=== PATIENT | male | born 1990 | race Caucasian/White ===

== ENCOUNTER 2019-03-23 03:53 | Emergency (ER) | payer SELFPAY ==
--- NOTE | 2019-03-23 04:34 | PDOC ---
History of Present Illness - General Stated Complaint: ABD PAIN History Source: Patient Exam Limitations: No Limitations - History of Present Illness Initial Comments: 03/23/19 05:05 28 yo M with a hx of anxiety presents to the emergency department with RLQ pain for the past 2 days with acute worsening over night. Per the patient, the pain was intermittent initially and now constant. Severity is 6/10 without radiation and is described as a cramping like sensation that worsens with urination. The patient denies previous abdominal surgeries. Denies the following: fevers, chills, SOB, chest pain, nausea, dysuria, hematuria, diarrhea, hematochezia, melena, leg pain/swelling, and lightheadedness. Allergies: NKDA Meds: None Past History - Past Medical History Allergies/Adverse Reactions: Allergies Allergy/AdvReac Type Severity Reaction Status Date / Time No Known Allergies Allergy Verified 03/23/19 04:47 Home Medications: Ambulatory Orders Cephalexin Monohydrate [Keflex -] 500 mg PO BID #14 capsule 03/23/19 Escitalopram Oxalate [Lexapro -] 10 mg PO DAILY 03/23/19 CVA: No COPD: No - Immunization History Immunization Up to Date: Yes - Psycho Social/Smoking Cessation Hx Smoking History: Never smoked Have you smoked in the past 12 months: No Hx Alcohol Use: No Drug/Substance Use Hx: No Substance Use Type: None Review of Systems - Review of Systems Able to Perform ROS?: Yes Is the patient limited Bahamian proficient: No Constitutional: No: Chills, Diaphoresis, Fever, Weakness HEENTM: No: Eye Pain, Ear Pain, Nose Pain, Throat Pain, Mouth Pain Respiratory: No: Cough, Shortness of Breath, Hemoptysis Cardiac (ROS): No: Chest Pain, Lightheadedness, Palpitations ABD/GI: Yes: Abdominal cramping. No: Constipated, Diarrhea, Nausea, Rectal Bleeding, Vomiting, Tarry Stools : No: Burning, Dysuria, Hematuria Musculoskeletal: No: Back Pain, Joint Pain, Neck Pain Integumentary: No: Bruising, Rash Neurological: No: Headache, Numbness Psychiatric: No: Change in Appetite Endocrine: No: Unexplained Weight Gain Hematologic/Lymphatic: No: Anemia *Physical Exam - Physical Exam General Appearance: Yes: Nourished, Appropriately Dressed. No: Apparent Distress, Intoxicated HEENT: positive: EOMI, KOURTNEY, Normal Voice, Symmetrical, Pharynx Normal, Hearing Grossly Normal. negative: Pale Conjunctivae, Scleral Icterus (R), Scleral Icterus (L), Muffled/Hoarse voice, Pharyngeal Erythema, Tonsillar Exudate, Tonsillar Erythema, Excessive drooling Neck: positive: Trachea midline, Supple. negative: Tender, Lymphadenopathy (R) , Lymphadenopathy (L), Tender lateral, Tender midline Respiratory/Chest: positive: Lungs Clear, Normal Breath Sounds. negative: Chest Tender, Respiratory Distress, Accessory Muscle Use Cardiovascular: positive: Regular Rhythm, Regular Rate, S1, S2. negative: Systolic Murmur Gastrointestinal/Abdominal: positive: Normal Bowel Sounds, Tender (RLQ. Positive psoas sign), Flat, Soft. negative: Distended Lymphatic: negative: Adenopathy Musculoskeletal: positive: Normal Inspection. negative: CVA Tenderness, Vertebral Tenderness Extremity: positive: Normal Capillary Refill, Normal Inspection, Normal Range of Motion. negative: Tender, Swelling, Calf Tenderness Integumentary: positive: Normal Color, Dry, Warm Neurologic: positive: Fully Oriented, Alert, Normal Mood/Affect ED Treatment Course - LABORATORY CBC & Chemistry Diagram: 03/23/19 04:51 03/23/19 04:51 Medical Decision Making - Medical Decision Making 03/23/19 05:13 28 yo M with a hx of anxiety presents to the emergency department with RLQ pain for the past 2 days with acute worsening over night. Per the patient, the pain was intermittent initially and now constant. Initial vitals: Initial Vital Signs Temp Pulse Resp BP Pulse Ox 98.1 F 81 18 112/70 98 03/23/19 04:44 03/23/19 04:44 03/23/19 04:44 03/23/19 04:44 03/23/19 04:44 work up: ddx: appendicitis vs UTI vs nephrolithiasis. patient to get abdomen pelvis CT with contrast to evaluate for appendicitis. Laboratory Tests 03/23/19 03/23/19 03/23/19 04:51 04:51 04:51 WBC 10.9 H RBC 5.11 Hgb 16.7 Hct 48.2 MCV 94.2 MCH 32.6 MCHC 34.6 RDW 13.6 Plt Count 272 MPV 8.5 Absolute Neuts (auto) 7.8 Neutrophils % 71.4 Lymphocytes % 19.9 Monocytes % 7.6 Eosinophils % 0.5 Basophils % 0.6 Nucleated RBC % 0 PT with INR 12.30 INR 1.04 PTT (Actin FS) Sodium 138 Potassium 3.8 Chloride 105 Carbon Dioxide 24 Anion Gap 9 BUN 17.0 Creatinine 1.1 Est GFR (CKD-EPI)AfAm 106.06 Est GFR (CKD-EPI)NonAf 91.51 Random Glucose 92 Calcium 9.1 Total Bilirubin 0.2 AST 25 ALT 54 Alkaline Phosphatase 149 H Total Protein 7.8 Albumin 3.9 Urine Color Urine Appearance Urine pH Ur Specific [place] Urine Protein Urine Glucose (UA) Urine Ketones Urine Blood Urine Nitrite Urine Bilirubin Urine Urobilinogen Ur Leukocyte Esterase Blood Type Antibody Screen 03/23/19 03/23/19 03/23/19 04:51 04:51 06:07 WBC RBC Hgb Hct MCV MCH MCHC RDW Plt Count MPV Absolute Neuts (auto) Neutrophils % Lymphocytes % Monocytes % Eosinophils % Basophils % Nucleated RBC % PT with INR INR PTT (Actin FS) 34.7 Sodium Potassium Chloride Carbon Dioxide Anion Gap BUN Creatinine Est GFR (CKD-EPI)AfAm Est GFR (CKD-EPI)NonAf Random Glucose Calcium Total Bilirubin AST ALT Alkaline Phosphatase Total Protein Albumin Urine Color Yellow Urine Appearance Clear Urine pH 5.5 Ur Specific [place] 1.023 Urine Protein Negative Urine Glucose (UA) Negative Urine Ketones Trace H Urine Blood Negative Urine Nitrite Negative Urine Bilirubin Negative Urine Urobilinogen 0.2 Ur Leukocyte Esterase Negative Blood Type B NEGATIVE Antibody Screen Negative labs within normal limits. UA within normal limits patient has a pending CT read. patient was signed out to day team. Discharge - Discharge Information Problems reviewed: Yes Clinical Impression/Diagnosis: Cystitis Abdominal pain Qualifiers: Abdominal location: right lower quadrant Qualified Code(s): R10.31 - Right lower quadrant pain Condition: Stable Disposition: HOME - Additional Discharge Information Prescriptions: Cephalexin Monohydrate [Keflex -] 500 mg PO BID #14 capsule - Follow up/Referral Referrals: Partha Leiva MD [Staff Physician] - Joelle Brothers MD [Primary Care Provider] - - Patient Discharge Instructions Patient Printed Discharge Instructions: DI for Abdominal Pain-Adult, DI for Acute Cystitis Additional Instructions: Your symptoms may be consistent with interstitial cystitis which is sterile inflammation of the urinary bladder. Please follow-up with urology for further evaluation and treatment. Return immediately for blood in the urine, high fever , severe right-sided abdominal pain - Post Discharge Activity
[2019-03-23] MEDS ORDERED: ACETAMINOPHEN 1000 MG/100 ML VIAL (NON FORMULARY) IVPB ONE (04:35)
[2019-03-23] MEDS ORDERED: SODIUM CHLORIDE 1,000 ML IV STA (04:35)
[2019-03-23] MEDS ORDERED: ONDANSETRON 4 MG/2 ML VIAL IVPUSH ONE (04:38)
--- NOTE | 2019-03-23 04:38 | PDOC ---
Attending Attestation - Resident Resident Name: Benjie Mak - ED Attending Attestation I have performed the following: I have examined & evaluated the patient, The case was reviewed & discussed with the resident, I agree w/resident's findings & plan - HPI HPI: 03/23/19 05:48 see resident hpi - Physicial Exam PE: 03/23/19 05:49 agree with resident exam - Medical Decision Making 03/23/19 05:49 28-year-old male with right lower quadrant pain CT scan of the abdomen and pelvis has been ordered to rule out appendicitis Case signed out to dayshift pending results
[2019-03-23 04:48] VITALS: BMI 29.7
[2019-03-23] MEDS ORDERED: ACETAMINOPHEN INJECTION 100 ML IVPB ONE (04:52)
[2019-03-23] MEDS ORDERED: ONDANSETRON 4 MG/2 ML VIAL ONE (04:52)
[2019-03-23 05:48] LABS: BASO % 0.6 % (0-2.0); EOS % 0.5 % (0-4.5); HEMATOCRIT 48.2 % (35.4-49); HEMOGLOBIN 16.7 GM/dL (11.7-16.9); LYMPH % 19.9 % (8-40); MCH 32.6 pg (25.7-33.7); MCHC 34.6 g/dl (32.0-35.9); MEAN CELL VOLUME 94.2 fl (80-96); MEAN PLT VOLUME 8.5 fl (7.5-11.1); MONO % 7.6 % (3.8-10.2); NEUT % 71.4 % (42.8-82.8); PLATELET COUNT 272 K/MM3 (134-434); RBC 5.11 M/mm3 (4.00-5.60); RDW 13.6 % (11.9-15.9); WHITE BLOOD COUNT 10.9 K/mm3 (4.0-10.0)
[2019-03-23 06:02] LABS: INR 1.04 (0.83-1.09); PROTHROMBIN TIME (PATIENT) 12.3 SEC (9.7-13.0)
[2019-03-23 06:45] LABS: ALBUMIN 3.9 g/dl (3.4-5.0); BILIRUBIN,TOTAL 0.2 mg/dL (0.2-1); CALCIUM 9.1 mg/dL (8.5-10.1); CREATININE 1.1 mg/dL (0.55-1.3); POTASSIUM 3.8 mmol/L (3.5-5.1); TOT PROT 7.8 g/dl (6.4-8.2)
[2019-03-23 06:50] LABS: PH,URINE 5.5 (5.0-8.0); URINE APPEARANCE CLEAR; URINE BILIRUBIN NEGATIVE (NEGATIVE); URINE COLOR YELLOW; URINE GLUCOSE (UA) NEGATIVE (NEGATIVE); URINE KETONE TRACE (NEGATIVE); URINE LEUK ESTERASE NEGATIVE (NEGATIVE); URINE NITRITE NEGATIVE (NEGATIVE); URINE PROTEIN NEGATIVE (NEGATIVE); URINE UROBILINOGEN 0.2 mg/dL (0.2-1.0)
--- NOTE | 2019-03-23 09:40 | PDOC ---
*Physical Exam - Vital Signs Last Vital Signs Temp Pulse Resp BP Pulse Ox 98.1 F 81 18 112/70 98 03/23/19 04:44 03/23/19 04:44 03/23/19 04:44 03/23/19 04:44 03/23/19 04:44 - Physical Exam Comments: 03/23/19 Patient endorsed to me by Dr. gonzáles. Patient is a well-appearing 28-year- old male who presented with atraumatic suprapubic and right lower quadrant pain for the past 2 days, waxing waning, with intermittent diarrhea and difficulty initiating urinary flow. In the ER, patient is awake and alert, well appearing , in no distress. On physical examination, patient has mild suprapubic tenderness and minimal right lower quadrant tenderness on deep palpation without guarding or rebound. CBC reveals no significant leukocytosis. CT of abdomen pelvis reveals no evidence of acute appendicitis/colitis or diverticulitis. Cystitis with bladder diverticulum on the right is noted. I suspect interstitial cystitis. But given this is patient's first presentation, will administer a course of p.o. antibiotics with urology follow-up. ED Treatment Course - LABORATORY CBC & Chemistry Diagram: 03/23/19 04:51 03/23/19 04:51 - ADDITIONAL ORDERS Additional order review: Laboratory Results 03/23/19 03/23/19 03/23/19 06:07 04:51 04:51 PT with INR INR PTT (Actin FS) 34.7 Sodium Potassium Chloride Carbon Dioxide Anion Gap BUN Creatinine Est GFR (CKD-EPI)AfAm Est GFR (CKD-EPI)NonAf Random Glucose Calcium Total Bilirubin AST ALT Alkaline Phosphatase Total Protein Albumin Urine Color Yellow Urine Appearance Clear Urine pH 5.5 Ur Specific [place] 1.023 Urine Protein Negative Urine Glucose (UA) Negative Urine Ketones Trace H Urine Blood Negative Urine Nitrite Negative Urine Bilirubin Negative Urine Urobilinogen 0.2 Ur Leukocyte Esterase Negative Blood Type B NEGATIVE Antibody Screen Negative 03/23/19 03/23/19 04:51 04:51 PT with INR 12.30 INR 1.04 PTT (Actin FS) Sodium 138 Potassium 3.8 Chloride 105 Carbon Dioxide 24 Anion Gap 9 BUN 17.0 Creatinine 1.1 Est GFR (CKD-EPI)AfAm 106.06 Est GFR (CKD-EPI)NonAf 91.51 Random Glucose 92 Calcium 9.1 Total Bilirubin 0.2 AST 25 ALT 54 Alkaline Phosphatase 149 H Total Protein 7.8 Albumin 3.9 Urine Color Urine Appearance Urine pH Ur Specific [place] Urine Protein Urine Glucose (UA) Urine Ketones Urine Blood Urine Nitrite Urine Bilirubin Urine Urobilinogen Ur Leukocyte Esterase Blood Type Antibody Screen 03/23/19 04:51 RBC 5.11 MCV 94.2 MCHC 34.6 RDW 13.6 MPV 8.5 Neutrophils % 71.4 Lymphocytes % 19.9 Monocytes % 7.6 Eosinophils % 0.5 Basophils % 0.6 - Medications Given in the ED: ED Medications Discontinued Medications Generic Name Dose Route Start Last Admin Trade Name Saiq PRN Reason Stop Dose Admin Acetaminophen 1,000 mg 03/23/19 04:35 03/23/19 05:03 Ofirmev Injection - IVPB 03/23/19 04:36 1,000 mg ONCE ONE Administration Sodium Chloride 1,000 mls @ 1,000 mls/hr 03/23/19 04:35 03/23/19 05:03 Normal Saline - IV 03/23/19 05:34 1,000 mls/hr ASDIR STA Administration Ondansetron HCl 4 mg 03/23/19 04:38 03/23/19 05:04 Zofran Injection IVPUSH 03/23/19 04:39 4 mg ONCE ONE Administration Discharge - Discharge Information Problems reviewed: Yes Clinical Impression/Diagnosis: Cystitis Abdominal pain Qualifiers: Abdominal location: right lower quadrant Qualified Code(s): R10.31 - Right lower quadrant pain Condition: Stable Disposition: HOME - Admission No - Follow up/Referral Referrals: Joelle Brothers MD [Primary Care Provider] - Partha Leiva MD [Staff Physician] - - Patient Discharge Instructions Patient Printed Discharge Instructions: DI for Abdominal Pain-Adult, DI for Acute Cystitis Additional Instructions: Your symptoms may be consistent with interstitial cystitis which is sterile inflammation of the urinary bladder. Please follow-up with urology for further evaluation and treatment. Return immediately for blood in the urine, high fever , severe right-sided abdominal pain - Post Discharge Activity
--- NOTE | 2019-03-23 09:57 | EKG ---
Test Reason : Blood Pressure : / mmHG Vent. Rate : 074 BPM Atrial Rate : 074 BPM P-R Int : 138 ms QRS Dur : 104 ms QT Int : 402 ms P-R-T Axes : 050 002 028 degrees QTc Int : 446 ms NORMAL SINUS RHYTHM NORMAL ECG NO PREVIOUS ECGS AVAILABLE Confirmed by NAVEEN ROBLES, MINH ([id number]) on 03/23/2019 9:57:06 AM Referred By: Confirmed By:MINH HODGE MD
[2019-03-23 10:05] VITALS: BP 100/62; PULSE 78; TEMP 98
== END 2019-03-23 09:55 | disposition home or self-care (01) ==
LOC: JER 03:53
PROC: 3E033NZ Introduction of Analgesics, Hypnotics, Sedatives into Peripheral Vein, Percutaneous Approach (ICD-10-PCS; principal; 2019-03-23)
PROC: 3E033NZ Introduction of Analgesics, Hypnotics, Sedatives into Peripheral Vein, Percutaneous Approach (ICD-10-PCS; 2019-03-23)
PROC: 3E033GC Introduction of Other Therapeutic Substance into Peripheral Vein, Percutaneous Approach (ICD-10-PCS; 2019-03-23)
DX: R10.31 Right lower quadrant pain (principal); N30.90 Cystitis, unspecified without hematuria
CPT/HCPCS: 36415; 71046-TC-FY; 74177-TC; 80053; 81003; 85025; 85610; 85730; 86850; 86900; 86901; 93005; 93010; 99284-25; J0131; J7030

== ENCOUNTER 2019-12-24 18:46 | Emergency (ER) | payer OTHER ==
--- NOTE | 2019-12-24 18:51 | PDOC ---
Rapid Medical Evaluation Time Seen by Provider: 12/24/19 18:48 Medical Evaluation: Allergies Allergy/AdvReac Type Severity Reaction Status Date / Time No Known Allergies Allergy Verified 03/23/19 04:47 12/24/19 18:48 I performed a brief in-person evaluation of this patient. Pt is a 29 y/o male who states he feels lightheaded for the last 2 hours. He states that he got bitten by something on the left upper arm 3-4 days ago. He states he pulled something out of his arm and believes it was a tick. Pertinent physical exam findings: Target appearing lesion to the left upper arm. I have ordered the following: deferred to treating provider Patient to proceed to ED for further evaluation. Discharge Disposition - Diagnosis Insect bite of left upper arm - Referrals - Patient Instructions - Post Discharge Activity
[2019-12-24 19:02] VITALS: BP 125/80; PULSE 90; TEMP 98.5; BMI 25.0
--- NOTE | 2019-12-24 19:21 | PDOC ---
History of Present Illness - General Chief Complaint: Bite Stated Complaint: DIZZINESS Time Seen by Provider: 12/24/19 18:48 History Source: Patient Exam Limitations: No Limitations ( ) - History of Present Illness Initial Comments: 12/24/19 19:17 29-year-old male presents to ED with complaints of feeling hot been feeling cold along with dizziness for the past few days. Patient also states 4 days ago had a swollen red raised bump to his left bicep which r he squeezed and stated pus came out of it. patient states has medical insurance and is followed by Dr. Garrison But decided come to the ER for further evaluation. Is this a multiple visit Asthma Patient?: No Timing/Duration: intermittent Severity: mild Associated Symptoms: reports: other Past History - Travel History Traveled outside of the country in the last 30 days: No Close contact w/someone who was outside of country & ill: No - Medical History Allergies/Adverse Reactions: Allergies Allergy/AdvReac Type Severity Reaction Status Date / Time No Known Allergies Allergy Verified 12/24/19 18:51 Home Medications: Ambulatory Orders Escitalopram Oxalate [Lexapro -] 10 mg PO DAILY 03/23/19 CVA: No COPD: No - Immunization History Immunization Up to Date: Yes - Psycho-Social/Smoking History Patient Lives Alone: No Lives with/in: parents Smoking History: Never smoked Have you smoked in the past 12 months: No Number of Cigarettes Smoked Daily: 5 - Substance Abuse Hx (Audit-C & DAST Scrn) How often the patient has a drink containing alcohol: Never Score: In Men: 4 or > Positive; In Women: 3 or > Positive: 0 Screen Result (Pos requires Nsg. Audit-10AR): Negative In the last yr the pt used illegal drug/Rx for NonMed reason: No Score: Yes response is considered Positive: 0 Screen Result (Positive result requires Nsg. DAST-10): Negative Review of Systems - Review of Systems Able to Perform ROS?: No Constitutional: No: Symptoms Reported, Loss of Appetite HEENTM: No: Symptoms Reported Respiratory: No: Symptoms reported Cardiac (ROS): Yes: Lightheadedness ABD/GI: No: Symptoms Reported : No: Symptoms Reported Musculoskeletal: No: Symptoms Reported Integumentary: Yes: Lumps Neurological: No: Symptoms reported Hematologic/Lymphatic: No: Symptoms Reported *Physical Exam - Vital Signs Last Vital Signs Temp Pulse Resp BP Pulse Ox 98.5 F 90 20 125/80 99 12/24/19 18:53 12/24/19 18:53 12/24/19 18:53 12/24/19 18:53 12/24/19 18:53 - Physical Exam General Appearance: Yes: Nourished, Appropriately Dressed. No: Apparent Distress HEENT: negative: Pale Conjunctivae Neck: positive: Normal Thyroid, Supple Respiratory/Chest: positive: Lungs Clear, Normal Breath Sounds. negative: Respiratory Distress, Accessory Muscle Use Cardiovascular: positive: Regular Rhythm, Regular Rate. negative: Murmur Gastrointestinal/Abdominal: positive: Soft. negative: Tenderness Extremity: positive: Normal Capillary Refill Integumentary: positive: Warm, Moist, Other (Noted well-circumscribed hypopigmented circular semi-raised area to the upper left bicep with a central scab noted) Neurologic: positive: Normal Mood/Affect, Motor Strength 5/5 (Ambulatory) Heart Score/ECG Review - ECG Intrepretation Rhythm: Regular Rhythm (Rate 75. Normal sinus rhythm. Intervals are regular. No ST elevation or depression noted) Medical Decision Making - Medical Decision Making 12/24/19 19:31 Chief complaint: Patient with complaints of hot and cold episodes occurring over the past 3 days associated intermittent dizziness without shortness of breath, chest pain, recorded temperature, or headache. Patient also states noted area that was red swollen and had a whitish center 4 days ago so squeezed it which exuded pus and since symptoms continued he decided come to the ER today. Patient denies medical history except for anxiety but states symptoms are different than his anxiety attacks and called his doctor, Dr. Belcher who referred him to go to the ER for further evaluation Exam: Vital signs stable. Noted dry crust to upper left forearm with flat hyperpigmented circular area surrounding center. Plan: Discussed the possibility of tick versus spider which in the realm of his history is likely due to spider or another insect and less likely a tick. Patient also states mother is diabetic and states has not had a physical in over a year. Patient order for EKG to rule out cardiac etiologies and a fingerstick to rule out elevated glucose Discussed also with patient the possibility of beginning doxycycline but states he is in the sun a lot. 12/24/19 19:35 Explained to patient if he is a concern for cellulitis or soft tissue infection to doxycycline will cover that and also given coverage for possible early infection of Lyme disease. Patient agrees with plan and will follow up with Dr. Belcher Discharge - Discharge Information Problems reviewed: Yes Clinical Impression/Diagnosis: Insect bite of left upper arm Condition: Good Disposition: HOME - Follow up/Referral Referrals: Joelle Brothers MD [Primary Care Provider] - - Patient Discharge Instructions Patient Printed Discharge Instructions: DI for Insect Bites and Stings Additional Instructions: Please take doxycycline as prescribed and follow-up with your PCP next week to discuss today's visit. Your glucose was 113 and your EKG showed normal sinus rhythm at 75 - Post Discharge Activity
--- NOTE | 2019-12-25 17:25 | EKG ---
Test Reason : Blood Pressure : / mmHG Vent. Rate : 075 BPM Atrial Rate : 075 BPM P-R Int : 130 ms QRS Dur : 102 ms QT Int : 362 ms P-R-T Axes : 057 013 024 degrees QTc Int : 404 ms NORMAL SINUS RHYTHM NORMAL ECG WHEN COMPARED WITH ECG OF 23-MAR-2019 05:37, NO SIGNIFICANT CHANGE WAS FOUND Confirmed by MD Man Edward ([id number]) on 12/25/2019 5:24:48 PM Referred By: Confirmed By:Josr Man MD
== END 2019-12-24 19:35 | disposition home or self-care (01) ==
LOC: JER 18:46
DX: S40.862A Insect bite (nonvenomous) of left upper arm, initial encounter (principal)
CPT/HCPCS: 82962; 93005; 93010; 99284-25

== ENCOUNTER 2020-01-16 13:55 | Emergency (ER) | payer OTHER ==
[2020-01-16 14:04] VITALS: BP 119/76; PULSE 91; TEMP 98.1; BMI 26.6
--- NOTE | 2020-01-16 14:06 | PDOC ---
Rapid Medical Evaluation Time Seen by Provider: 01/16/20 14:01 Medical Evaluation: Allergies Allergy/AdvReac Type Severity Reaction Status Date / Time No Known Allergies Allergy Verified 01/16/20 14:01 01/16/20 14:01 I have performed a brief in-person evaluation of this patient. The patient presents with a chief complaint of:OMALLEY Pertinent physical exam findings:stable, well ethan I have ordered the following:nothing The patient will proceed to the ED for further evaluation. Discharge Disposition - Diagnosis Headache Qualifiers: Headache type: unspecified Headache chronicity pattern: acute headache Intractability: not intractable Qualified Code(s): R51 - Headache - Referrals - Patient Instructions - Post Discharge Activity
== END 2020-01-16 14:10 | disposition left against medical advice (07) ==
LOC: JER 13:55
DX: R51 Headache (principal)
CPT/HCPCS: 99281-25

== ENCOUNTER 2020-01-18 15:41 | Emergency (ER) | payer OTHER ==
[2020-01-18 15:53] VITALS: BP 111/72; PULSE 91; TEMP 98.3; BMI 26.6
--- NOTE | 2020-01-18 16:56 | PDOC ---
History of Present Illness - General Chief Complaint: Psychiatric Stated Complaint: ANXIETY Time Seen by Provider: 01/18/20 16:46 History Source: Patient Exam Limitations: No Limitations - History of Present Illness Initial Comments: 01/18/20 17:07 29-year-old male past medical history of panic disorder on Lexapro presenting to the ED with increasing panic attacks. Patient states that during COVID his panic attacks have become more frequent and that he has been unable to leave the house on his own. Patient has been unable to see his primary care doctor who prescribes her Lexapro due to COVID and has not been unable to find a psychiatrist due to insurance issues. Patient was seen at [facility] emergency room a few days ago and given Ativan with mild relief. Patient states he has no suicidal ideations or homicidal as well as no audio or visual hallucinations. Patient denies any drug use or alcohol abuse. Patient is currently asymptomatic in the ED and is seeking guidance for psychiatric help. Pt otherwise denies: fevers, chills, syncope, lightheadedness, dizziness, headaches, neck pain, chest pain, shortness of breath, palpitations, back pain, abdominal pain, nausea, vomiting, diarrhea, constipation. Past History - Medical History Allergies/Adverse Reactions: Allergies Allergy/AdvReac Type Severity Reaction Status Date / Time No Known Allergies Allergy Verified 01/16/20 14:01 Home Medications: Ambulatory Orders Escitalopram Oxalate [Lexapro -] 10 mg PO DAILY 03/23/19 Hydroxyzine HCl 25 mg PO BID #25 tablet MDD 2 01/18/20 CVA: No COPD: No - Immunization History Immunization Up to Date: Yes - Psycho-Social/Smoking History Smoking History: Never smoked Have you smoked in the past 12 months: No Number of Cigarettes Smoked Daily: 5 - Substance Abuse Hx (Audit-C & DAST Scrn) How often the patient has a drink containing alcohol: Never Score: In Men: 4 or > Positive; In Women: 3 or > Positive: 0 Screen Result (Pos requires Nsg. Audit-10AR): Negative In the last yr the pt used illegal drug/Rx for NonMed reason: No Score: Yes response is considered Positive: 0 Screen Result (Positive result requires Nsg. DAST-10): Negative *Physical Exam - Vital Signs Last Vital Signs Temp Pulse Resp BP Pulse Ox 98.3 F 91 H 20 111/72 98 08/19/20 15:49 01/18/20 15:49 01/18/20 15:49 01/18/20 15:49 01/18/20 15:49 - Physical Exam 01/18/20 17:10 Gen: AAOx 3, no acute distress, comfortable, no signs of respiratory distress HENT: atraumatic, normocephalic with no laceration or contusion. Nasal mucosa without erythema. Oropharynx without erythema or exudates. Mucous membranes moist. EYES: PERRL, EOM intact, conjunctiva pink NECK: supple; trachea midline; no JVD, no lymphadenopathy, or thyromegaly CV: RRR no murmurs, gallops, or rubs. CHEST: CTA b/l no wheezing, rales or rhonchi ABD: +BS/ND. no TTP; soft, no rebound, no guarding EXTREMITY: no cyanosis or erythema. 2+ dorsalis pedis, posterior tibial, and radial pulse. No pedal edema; no calf swelling or tenderness SKIN: no rash, warm and dry, no diaphoresis HEME: no purpura or ecchymosis NEURO: normal speech, CN II-XII intact, sensation intact, normal gait, no cerebellar deficits MS: 5/5 strength in all extremities, FROM intact in all extremities. Medical Decision Making - Medical Decision Making 01/18/20 17:10 29-year-old male increasing panic attacks Vital signs stable Will refer patient to in-house psychiatry on an outpatient basis as well as prescribe hydroxyzine for symptomatic relief Due to patient not having any SI/HI no acute intervention is warranted in the ED Pt appears well and is safe and stable for discharge with strict return precautions including signs and symptoms requring immediate return to the ED Supportive care instructions explained and given to pt. Reasons to return emergently to ER explained and given. Importance of follow up with PMD and other specialists as indicated stressed to pt. Pt verbalized understanding of instructions. Pt to follow up with PMD in 2 days. Discharge - Discharge Information Problems reviewed: Yes Clinical Impression/Diagnosis: Panic disorder Condition: Stable Disposition: HOME - Additional Discharge Information Prescriptions: Hydroxyzine HCl 25 mg PO BID #25 tablet MDD 2 - Follow up/Referral Referrals: Joelle Brothers MD [Primary Care Provider] - Evelyn Salgado MD [Staff Physician] - - Patient Discharge Instructions Patient Printed Discharge Instructions: DI for Panic Disorder - Post Discharge Activity Work/Back to School Note: My Personal Safety Plan
== END 2020-01-18 17:15 | disposition home or self-care (01) ==
LOC: JER 15:41
DX: F41.0 Panic disorder [episodic paroxysmal anxiety] (principal)
CPT/HCPCS: 99283-25